=== PATIENT | female | born 1985 | race Caucasian/White ===

== ENCOUNTER 2017-06-21 15:15 | Inpatient (IN) | payer OTHER ==
[~2017-06-21] VITALS: Ht 157.5 cm; Wt 2.7 kg
[2017-06-21] MEDS ORDERED: VIMPAT100 MG PO (15:23)
[2017-06-21] MEDS ORDERED: FOLIC ACID1 MG PO (15:24)
[2017-06-21] MEDS ORDERED: INTEGRA PLUS C1 EACH PO (15:24)
[2017-06-21] MEDS ORDERED: ATABEX EC CAPL1 EACH PO (15:24)
[2017-06-22] MEDS ORDERED: NIFE60TA3 PO (06:19)
== END 2017-06-25 12:20 | DRG 766 ==
LOC: O/R 06-22 05:39 → OB/GYN 06-22 10:27 → SURH 06-22 15:15 → OB/GYN 06-22 15:15 → SURH 07-10 15:15
PROVIDERS: Specialist
PROC: 4A1HXCZ Monitoring of Products of Conception, Cardiac Rate, External Approach (ICD-10-PCS; 2017-06-22)
PROC: 10D00Z1 Extraction of Products of Conception, Low, Open Approach (ICD-10-PCS; principal; 2017-06-22 07:30)
DX: O69.81X0 Labor and delivery complicated by cord around neck, without compression, not applicable or unspecified (principal); O99.02 Anemia complicating childbirth; Z3A.39 39 weeks gestation of pregnancy; Z37.0 Single live birth